=== PATIENT | female | born 1980 | race Hispanic/Latino ===

== ENCOUNTER 2021-02-09 19:39 | Emergency (ER) | payer SELFPAY ==
[2021-02-09] MEDS ORDERED: Lidocaine Viscous Sol 2% 15 ml UD Cup ONE (20:07)
[2021-02-09] MEDS ORDERED: Mag-Al Plus 1200 MG/1200 MG/120 MG/30 ML UDCUP ONE (20:07)
== END 2021-02-09 20:15 | disposition home or self-care (01) ==
LOC: NAV ERS 19:39
DX: K21.9 Gastro-esophageal reflux disease without esophagitis (principal)
CPT/HCPCS: 99284